=== PATIENT | male | born 1940 | race Caucasian/White ===

== ENCOUNTER 2017-10-30 15:35 | Inpatient (IN) ==
[2017-10-29] MEDS: Acetaminophen 325 MG TABLET PO PRN (22:23)
[2017-10-30] MEDS: Acetaminophen 325 MG TABLET PO PRN ×3 (04:58→18:31)
[2017-10-30 05:15] LABS: Basophils % 0.3 %; Eosinophils # 0.2 K/mcL (0.0-0.6); Eosinophils % 2.3 %; Hematocrit 31.7 % (37.5-50.1); Hemoglobin 9.4 g/dL (12.9-16.9); Immature Granulocytes % 0.5 % (0-4); Lymphocytes # 0.5 K/mcL (0.6-4.6); Lymphocytes % 6.1 %; Mean Corpuscular HGB Conc 29.7 g/dL (31.6-35.5); Mean Corpuscular Hemoglobin 25.5 pg (28.0-33.3); Mean Corpuscular Volume 86.1 fL (83.0-100.0); Mean Platelet Volume 9.7 fL (9.4-12.4); Monocytes # 0.9 K/mcL (0.0-1.3); Neutrophils # 6.2 K/mcL (1.6-8.9); Platelet Count 144 K/mcL (140-400); Red Blood Count 3.68 M/mcL (4.19-5.50); Red Cell Distribution Width 18.7 % (11.5-14.5); Segmented Neutrophils % 79.8 %
[2017-10-30 05:20] LABS: INR 1.4; Prothrombin Time 15.5 Seconds (9.4-12.1)
[2017-10-30 05:23] LABS: Activated Partial Thrombo Time 32.9 Seconds (26.0-36.0)
[2017-10-30 05:28] LABS: BUN/Creatinine Ratio 19 (6-26); Blood Urea Nitrogen 20 mg/dL (8-23); Calcium 7.5 mg/dL (8.6-10.3); Carbon Dioxide 24 mEq/L (23-29); Chloride 111 mEq/L (98-107); Glucose 171 mg/dL (70-105); Osmolality,Calculated 301 (280-300); Potassium 4.7 mEq/L (3.5-5.1); Sodium 142 mEq/L (136-145); eGFR For Non-African Americans > 60 (> 60)
[2017-10-30] MEDS: Insulin LISPRO 300 UNITS/3 ML VIAL SQ SCH ×4 (08:09→20:18)
[2017-10-30 09:37] LABS: Estimated Average Glucose 146 mg/dl; Hemoglobin A1C 6.7 %
--- NOTE | 2017-10-30 12:46 | Internal Med History&Physical ---
Date of Encounter: 10/30/17 Time of Encounter: 12:42 Assessment and Plan (1) Hypomagnesemia Current visit: Yes Status: Acute Magnesium supplement ordered for today. Will repeat labs tomorrow. (2) DVT (deep venous thrombosis) Current visit: Yes Status: Acute DVT left upper extremity and right lower extremity. Patient not a candidate for anticoagulation due to history of G.I. bleed and GAVE. Does have IVC filter. Qualifiers: DVT location: lower extremity Affected thrombotic vein of extremity: unspecified lower extremity distal vein Chronicity: acute Laterality: right Qualified Code(s): I82.4Z1 - Acute embolism and thrombosis of unspecified deep veins of right distal lower extremity (3) GAVE (gastric antral vascular ectasia) Current visit: Yes Status: Acute Continue to monitor hemoglobin. Follow up with G.I. as scheduled. (4) Anemia Current visit: Yes Status: Chronic Current hemoglobin 9.4. Stable. Will monitor closely. Qualifiers: Anemia type: iron deficiency Iron deficiency anemia type: chronic blood loss Qualified Code(s): D50.0 - Iron deficiency anemia secondary to blood loss (chronic) (5) CAD (coronary artery disease) Current visit: Yes Status: Chronic Denies chest pain. Continue current medications. Qualifiers: Coronary Disease-Associated Artery/Lesion type: unspecified vessel or lesion type [place] vs. transplanted heart: unspecified whether [place] or transplanted heart Associated angina: without angina Qualified Code(s): I25.10 - Atherosclerotic heart disease of [place] coronary artery without angina pectoris (6) Diabetes Current visit: Yes Status: Chronic Hemoglobin A-1 C6 .7. Continue insulin. Monitor fingerstick blood sugars. Qualifiers: Diabetes mellitus type: type 2 Diabetes mellitus buttermaker continuous churn insulin use: with chcf use Diabetes mellitus complication status: without complication Qualified Code(s): E11.9 - Type 2 diabetes mellitus without complications; Z79.4 - termite control service representative (current) use of insulin (7) GI bleed Current visit: Yes Status: Chronic Follow up with G.I. as scheduled. PEARL noted will repeat endoscopy in 6 weeks. Follow up appointment is in 2 weeks. Continue supplements and monitor hemoglobin. Qualifiers: GI bleed type/associated pathology: angiodysplasia of stomach and duodenum Qualified Code(s): K31.811 - Angiodysplasia of stomach and duodenum with bleeding Internal Medicine - H&P: HPI Admitted From: Hospital to Hospital Transfer Plans for Post Hospital Care: Home History of present illness: Mr. Jennings is a 77 year old male admitted to rehab unit from [facility]. Past medical history includes aortic aneurysm with dissection status post repair and 2014, DVT not on anticoagulation. Diabetes, Hypertension, coronary artery disease, gave lesion, chronic anemia. History of prostate cancer and coronary artery bypass graft. Has had multiple blood transfusions in the past 6 months reporting at least one per month. Hemoglobin stable at 9.4 today. Does have current DVT in right lower extremity and left upper extremity. He does have an IVC filter in place due to previous clots with pulmonary embolism' s. Denies shortness of breath, chest pain, fever, chills, nausea vomiting or diarrhea. Does have very little appetite. Left lower extremity cool to touch with slight discoloration of toes. Discussed ordering venous and arterial Doppler. Will discuss code status with patient. Past Med Surg Social Fam HX - Past Medical History Medical history: aortic aneurysm, DVT, diabetes, hypertension, kidney stones, pulmonary embolus, other Additional medical history: Prostate cancer. Anemia. Psychiatric history: no psych history - Past Surgical History Surgical History: coronary bypass (CABG), other Additional surgical history: AAA repair - Social History Smoking Status: Never smoker Smokeless Tobacco Status: No Alcohol use: none Drug use: none - Family History Mother Living Status: Hx Family Cardiac Disorders: Yes Hx Family Endocrine Disorder: Yes (DM) Internal Medicine - H&P: Meds Carvedilol [Coreg] 25 mg PO BID 04/15/17 [History] Cyanocobalamin (Vitamin B-12) [Vitamin B12] 1,000 mcg PO DAILY 04/15/17 [History ] Folic Acid 1 mg PO DAILY 04/15/17 [History] Multivit-Min/FA/Lycopen/Lutein [Centrum Silver Men Tablet] 1 each PO DAILY 04/15 [History] Pantoprazole Sodium [Protonix] 40 mg PO BID 04/15/17 [History] Potassium Chloride [Klor-Con 10] 10 meq PO TID 04/15/17 [History] Venlafaxine [Effexor] 37.5 tab PO DAILY 04/15/17 [History] Vitamin E Acetate [Vitamin E] 400 unit PO DAILY 04/15/17 [History] Albuterol Sulfate [Albuterol Inhaler] 2 puff IH BID PRN 06/27/17 [History] Torsemide [Demadex] 10 mg PO DAILY 07/18/17 [History] Ondansetron HCl [Zofran] 4 mg PO Q6H PRN #30 tab 08/15/17 [Rx] Atorvastatin [Lipitor] 40 mg PO HS 09/02/17 [History] Cholecalciferol (Vitamin D3) [Vitamin D3] 2,000 unit PO DAILY 09/27/17 [History] Prochlorperazine Maleate [Compazine] 5 mg PO Q6HR PRN 09/27/17 [History] Acetaminophen [Non-Aspirin] 650 mg PO Q4HR 10/29/17 [History] Insulin DETEMIR [Levemir] 40 unit SQ BID 10/29/17 [History] 3 Allergy/AdvReac Type Severity Reaction Status Date / Time Sulfa (Sulfonamide Allergy Rash Verified 10/23/17 22:50 Antibiotics) aspartame AdvReac Migraine Verified 10/26/17 12:34 hydrocodone [From Vicodin] AdvReac Confusion Verified 10/23/17 22:50 tramadol AdvReac Confusion Verified 10/23/17 22:50 All Systems PM: A 10-system review of systems was performed and is negative for pertinent findings except as documented above in the HPI. - Constitutional Constitutional: fatigue, no chills, no fever(s), no night sweats - EENT Eyes: no change in vision, no discharge, no pain, no photophobia Ears: no ear discharge, no ear pain, no tinnitus Nose, mouth and throat: no dysphagia, no nasal discharge, no neck pain, no sore throat - Cardiovascular Cardiovascular ROS IM: no chest pain, no diaphoresis, no dyspnea, no lightheadedness, no palpitations, no syncope - Respiratory Respiratory: no cough, no dyspnea, no wheezing, no excessive phlegm production - Gastrointestinal Gastrointestinal: no abdominal pain, no diarrhea, no hematemesis, no hematochezia, no melena, no nausea, no vomiting - Musculoskeletal Musculoskeletal ROS IM: no numbness, no tingling - Integumentary Integumentary IM: no rash, no unusual bruising - Neurological Neurological ROS: no confusion, no convulsions, no focal weakness, no numbness, no tingling, no tremor(s) - Hematologic/Lymphatic Hematologic/Lymphatic: no easy bruising - Constitutional Vitals: Temp Pulse Resp BP Pulse Ox 97.6 F 96 16 146/70 96 10/30/17 07:35 10/30/17 07:35 10/30/17 07:35 10/30/17 07:35 10/30/17 07:35 General appearance: Present: cooperative, A&O X 3, pleasant, no acute distress, answers questions appropriately - Head Head exam: Present: atraumatic, normocephalic - Eye Eye exam: Present: PERRL, conjuntiva pink, sclera anicteric Pupils: Present: PERRL - Neck Neck exam general surgery: Present: supple, trachea midline. Absent: lymphadenopathy - Respiratory Respiratory exam: Present: CTAB. Absent: accessory muscle use, rales, rhonchi, wheezes - Cardiovascular Cardiovascular exam: Present: RRR, +S1, +S2. Absent: diastolic murmur, gallop, rubs, systolic murmur - GI/Abdominal GI/Abdominal exam: Present: normal bowel sounds, soft, no peritoneal signs. Absent: distended, tenderness - Extremities Exam Extremities exam: Present: warm, radial pulses palpable and symmetrical. Absent : calf tenderness, cyanotic, pedal edema Additional comments: RLE 2+ pitting edema. LLE cool to touch with slight cyanosis and edema. - Neurological Exam Neurological exam: Present: CN II-XII intact, oriented X3, no focal deficits. Absent: pronater drift, facial droop, speech deficit - Skin Skin exam: Present: dry, intact Internal Med - H&P Results - Labs CBC & Chem 7: 10/30/17 05:05 10/30/17 05:05 Labs: Short CBC 10/30/17 Range/Units 05:05 WBC 7.8 D (4.3-11.1) K/mcL Hgb 9.4 L (12.9-16.9) g/dL Hct 31.7 L (37.5-50.1) % Plt Count 144 (140-400) K/mcL Neutrophils # 6.2 (1.6-8.9) K/mcL BMP 10/30/17 05:05 Sodium 142 Potassium 4.7 Chloride 111 H Carbon Dioxide 24 BUN 20 Creatinine 1.06 Glucose 171 H Calcium 7.5 L
[~2017-10-30 15:35] MED LIST: *HR* Dextrose 50 % in Water (Syg) 50 ML SYRINGE IVP PRN; 0.9 % Sodium Chloride 1,000 ML IVC SCH; Cholecalciferol (D-3) 1,000 UNIT TABLET PO SCH; Cyanocobalamin (B-12) 1,000 MCG TABLET PO SCH; D5% in Water 1,000 ML IVC PRN; Dextrose Gel 15 GM/37.5 ML TUBE PO PRN; Folic Acid 1 MG TABLET PO SCH; Insulin DETEMIR 100 UNIT/ML X5UNITS SQ SCH; Insulin DETEMIR 100 UNIT/ML per UNIT SQ ONE; Multivit/Ca/Min/Fe/FA 1 TAB TABLET PO SCH; Ondansetron ODT 4 MG TAB.RAPDIS PO PRN; Ondansetron ODT 4 MG TAB.RAPDIS SL PRN; Torsemide 20 MG TABLET PO SCH
[2017-10-30] MEDS ORDERED: D5% in Water 1,000 ML IVC PRN (16:36)
[2017-10-30] MEDS ORDERED: Dextrose Gel 15 GM/37.5 ML TUBE PO PRN ×2 (16:36)
[2017-10-30] MEDS ORDERED: Insulin DETEMIR 100 UNIT/ML per UNIT SQ ONE (21:00)
[2017-10-30] MEDS ORDERED: Insulin LISPRO 300 UNITS/3 ML VIAL SQ SCH (21:00)
[2017-10-30] MEDS: 0.9 % Sodium Chloride 1,000 ML IVC SCH (22:22)
[2017-10-31 05:43] LABS: Basophils % 0.1 %; Eosinophils # 0.2 K/mcL (0.0-0.6); Eosinophils % 2.4 %; Hematocrit 31.3 % (37.5-50.1); Hemoglobin 9.5 g/dL (12.9-16.9); Immature Granulocytes % 0.6 % (0-4); Lymphocytes # 0.5 K/mcL (0.6-4.6); Lymphocytes % 5.8 %; Mean Corpuscular HGB Conc 30.4 g/dL (31.6-35.5); Mean Corpuscular Hemoglobin 25.9 pg (28.0-33.3); Mean Corpuscular Volume 85.3 fL (83.0-100.0); Mean Platelet Volume 10.3 fL (9.4-12.4); Monocytes # 0.9 K/mcL (0.0-1.3); Monocytes % 10.6 %; Platelet Count 144 K/mcL (140-400); Red Blood Count 3.67 M/mcL (4.19-5.50); Red Cell Distribution Width 18.8 % (11.5-14.5); Segmented Neutrophils % 80.5 %
[2017-10-31 06:00] LABS: Alanine Aminotransferase 24 Units/L (7-52); Albumin 2.2 g/dL (3.5-5.7); Albumin/Globulin Ratio 0.7 (1.1-2.2); Alkaline Phosphatase 223 Units/L (34-104); Aspartate Amino Transferase 48 Units/L (13-39); BUN/Creatinine Ratio 20 (6-26); Bilirubin,Total 0.4 mg/dL (0.3-1.0); Blood Urea Nitrogen 20 mg/dL (8-23); Calcium 7.5 mg/dL (8.6-10.3); Carbon Dioxide 22 mEq/L (23-29); Chloride 112 mEq/L (98-107); Globulin 3.2 g/dL (2.4-3.5); Glucose 74 mg/dL (70-105); Magnesium 0.7 mg/dL (1.6-2.6); Osmolality,Calculated 291 (280-300); Potassium 4.2 mEq/L (3.5-5.1); Sodium 140 mEq/L (136-145); Total Protein 5.4 g/dL (6.4-8.9); eGFR For Non-African Americans > 60 (> 60)
[2017-10-31] MEDS: Insulin LISPRO 300 UNITS/3 ML VIAL SQ SCH ×4 (07:50→20:01)
[2017-10-31] MEDS: Torsemide 20 MG TABLET PO SCH (08:38)
[2017-10-31] MEDS: Cyanocobalamin (B-12) 1,000 MCG TABLET PO SCH (08:38)
[2017-10-31] MEDS: Multivit/Ca/Min/Fe/FA 1 TAB TABLET PO SCH (08:38)
[2017-10-31] MEDS: Acetaminophen 325 MG TABLET PO PRN ×3 (08:38→19:57)
[2017-10-31] MEDS: Folic Acid 1 MG TABLET PO SCH (08:38)
[2017-10-31] MEDS: Cholecalciferol (D-3) 1,000 UNIT TABLET PO SCH (08:38)
[2017-10-31] MEDS: Insulin DETEMIR 100 UNIT/ML X5UNITS SQ SCH ×2 (08:39→20:01)
[2017-10-31] MEDS: aMILoride 5 MG TABLET PO SCH (08:43)
[2017-10-31] MEDS ORDERED: aMILoride 5 MG TABLET PO SCH (09:00)
[2017-10-31] MEDS ORDERED: Torsemide 20 MG TABLET PO SCH (09:00)
--- NOTE | 2017-10-31 10:34 | Discharge Summary ---
Orders not resulted at time of discharge: Pending orders 10/30/17 05:05 Vitamin D 1,25 Dihydroxy AM 0400 10/30/17 14:06 abdominal ultrasound - limited [US abdomen limited] [US] Routine Date of Encounter: 10/30/17 Time of Encounter: 15:00 Hospital course: Please see H&P this date. Patient transferred from rehabilitation to swing status. No issues besides what is in H&P. - Time Spent with Patient Total time spent providing and/or coordinating discharge services: - Discharge Medications Home Medications: Carvedilol [Coreg] 25 mg PO BID 04/15/17 [History] Cyanocobalamin (Vitamin B-12) [Vitamin B12] 1,000 mcg PO DAILY 04/15/17 [History ] Folic Acid 1 mg PO DAILY 04/15/17 [History] Multivit-Min/FA/Lycopen/Lutein [Centrum Silver Men Tablet] 1 each PO DAILY 04/15 [History] Pantoprazole Sodium [Protonix] 40 mg PO BID 04/15/17 [History] Potassium Chloride [Klor-Con 10] 10 meq PO TID 04/15/17 [History] Venlafaxine [Effexor] 37.5 tab PO DAILY 04/15/17 [History] Vitamin E Acetate [Vitamin E] 400 unit PO DAILY 04/15/17 [History] Albuterol Sulfate [Albuterol Inhaler] 2 puff IH BID PRN 06/27/17 [History] Torsemide [Demadex] 10 mg PO DAILY 07/18/17 [History] Ondansetron HCl [Zofran] 4 mg PO Q6H PRN #30 tab 08/15/17 [Rx] Atorvastatin [Lipitor] 40 mg PO HS 09/02/17 [History] Cholecalciferol (Vitamin D3) [Vitamin D3] 2,000 unit PO DAILY 09/27/17 [History] Prochlorperazine Maleate [Compazine] 5 mg PO Q6HR PRN 09/27/17 [History] Acetaminophen [Non-Aspirin] 650 mg PO Q4HR 10/29/17 [History] Insulin DETEMIR [Levemir] 40 unit SQ BID 10/29/17 [History] Allergies/Adverse Reactions: 3 Allergy/AdvReac Type Severity Reaction Status Date / Time Sulfa (Sulfonamide Allergy Rash Verified 10/23/17 22:50 Antibiotics) aspartame AdvReac Migraine Verified 10/26/17 12:34 hydrocodone [From Vicodin] AdvReac Confusion Verified 10/23/17 22:50 tramadol AdvReac Confusion Verified 10/23/17 22:50 Date of admission: 10/29/17 18:41 Primary care physician: PCP ANDRIY Consults: 10/29/17 21:52 Consult to Occupational Therapy [CONS] Routine Comment: Evaluate, develop and implement POC Reason for Consult: Evaluate and treat Does patient have active BEDREST order?: No Is patient medically & hemodynamically stable?: Yes Patient assessed for mobility or mobilized this visit?: Yes Consult to Physical Medicine/Rehab [CONS] Routine Reason for Consult: Evaluate and treat Call Completed: No Consult to Physical Therapy [CONS] Routine Comment: Evaluate, develop and implement POC Reason for Consult: Evaluate and treat Does patient have active BEDREST order?: No Is patient medically & hemodynamically stable?: Yes Patient assessed for mobility or mobilized this visit?: Yes Consult to Recreational Therapy [CONS] Routine Comment: Evaluate, develop and implement POC Consult to Python Architect [CONS] Routine Reason for SW Consult: Pt and will need assistance in determining code status. - Constitutional Vitals: Temp Pulse Resp BP Pulse Ox 97.4 F L 83 16 90/64 95 10/30/17 13:01 10/30/17 13:01 10/30/17 13:01 10/30/17 13:01 10/30/17 13:01 General appearance: Present: cooperative, A&O X 3, pleasant, no acute distress, answers questions appropriately - Patient Status Disposition: Still a Patient - Discharge Instructions [facility] [Primary Care Provider[facility] -
--- NOTE | 2017-10-31 10:37 | Internal Med History&Physical ---
Date of Encounter: 10/31/17 Time of Encounter: 10:34 Assessment and Plan (1) Physical deconditioning Current visit: Yes Status: Acute Patient is a transfer from [facility] where he was evaluated for multiple issues that would include hypotension, poor nutritional intake, nausea, GAVE syndrome and prostate CA. patient appears relaxed and currently denies any discomforts. Patient states she continues to be fairly weak which he believes is secondary to his fluid retention in his legs. Patient is currently being evaluated by PT/OT and is to continue with therapy. No acute issues at this time and will continue with supportive care. Patient is scheduled for a gallbladder ultrasound tomorrow. (2) Prostate cancer Current visit: Yes Status: Acute Patient continues with supportive care. We will continue with follow-up with oncology/urology. Patient was treated for his prostate CA earlier this year, during which time he received radiation. 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 (3) Ascites Current visit: Yes Status: Acute Patient's abdomen continues to be somewhat distended and firm. Patient has had a recent paracentesis during which greater than 5 L of fluid was removed per medical records. Patient states that his abdomen is much smaller than it was in the recent past. Patient continues to have moderate edema to bilateral legs. We will continue to monitor. Patient remains asymptomatic and denies any shortness of breath. Qualifiers: Ascites type: other type Qualified Code(s): R18.8 - Other ascites (4) DVT (deep venous thrombosis) Current visit: Yes Status: Acute No acute issues. Patient currently has DVT is located to his left upper arm and right lower leg. Patient with history of DVTs in the past and currently has IVC filter in place. Patient currently not on any anticoagulation due to his current issues with GAVE and related potential for GI bld. Will continue to monitor his status on this. Hx of PE. No acute pulmonary issues. Qualifiers: DVT location: upper extremity Affected thrombotic vein of extremity: unspecified vein of extremity Chronicity: acute Laterality: unspecified laterality Qualified Code(s): I82.629 - Acute embolism and thrombosis of deep veins of unspecified upper extremity (5) GAVE (gastric antral vascular ectasia) Current visit: No Status: Acute No acute issues at this time. Has had a BM today with no reported signs of bleeding. Most recent hemoglobin was 9.5. We will continue to monitor with serial labs and exam. (6) Hypomagnesemia Current visit: Yes Status: Acute Patient's labs were reviewed with today's magnesium level 0.7. We will repeat IV magnesium replacement and recheck labs in the morning. Patient currently with complaints of generalized weakness, but otherwise asymptomatic. (7) CAD (coronary artery disease) Current visit: Yes Status: Chronic No acute issues. Patient denies any discomforts or palpitations. We will continue with current home medications. Patient has had a lower blood pressure than his normal. Today systolic blood pressure is greater than 100. Qualifiers: Coronary Disease-Associated Artery/Lesion type: unspecified vessel or lesion type [place] vs. transplanted heart: [place] heart Associated angina: without angina Qualified Code(s): I25.10 - Atherosclerotic heart disease of [place] coronary artery without angina pectoris (8) Diabetes Current visit: No Status: Chronic No acute issues. Patient's glucose of 1 well-controlled with current fingerstick showing glucose less than 140. We will continue with current medication Qualifiers: Diabetes mellitus type: type 2 Diabetes mellitus penitentiary insulin use: unspecified penitentiary insulin use status Diabetes mellitus complication status : with unspecified complications Qualified Code(s): E11.8 - Type 2 diabetes mellitus with unspecified complications Internal Medicine - H&P: HPI Chief complaint: deconditioning Admitted From: Intrahospital Transfer Plans for Post Hospital Care: Home History of present illness: Mr. Jennings is a 77 year old male, admitted to rehab unit from [facility]. Past medical history includes aortic aneurysm with dissection status post repair and 2014, DVT not on anticoagulation. Diabetes, Hypertension, coronary artery disease, gave lesion, chronic anemia. History of prostate cancer and coronary artery bypass graft. Has had multiple blood transfusions in the past 6 months reporting at least one per month. Does have current DVT in right lower extremity and left upper extremity. He does have an IVC filter in place due to previous clots with pulmonary embolism's. Patient has had unspecified ascites recently which required paracentesis. Patient states that his abdomen appears much smaller than it did prior to his paracentesis. Denies shortness of breath, chest pain, fever, chills, nausea vomiting or diarrhea. Left lower extremity cool to touch with slight discoloration of toes. Past Med Surg Social Fam HX - Past Medical History Medical history: aortic aneurysm, DVT, diabetes, hypertension, kidney stones, pulmonary embolus, other Additional medical history: Prostate cancer. Anemia. Psychiatric history: no psych history - Past Surgical History Surgical History: coronary bypass (CABG), other Additional surgical history: AAA repair - Social History Smoking Status: Never smoker Smokeless Tobacco Status: No Alcohol use: none Drug use: none - Family History Mother Living Status: Hx Family Cardiac Disorders: Yes Hx Family Endocrine Disorder: Yes (DM) Internal Medicine - H&P: Meds Carvedilol [Coreg] 25 mg PO BID 04/15/17 [History] Cyanocobalamin (Vitamin B-12) [Vitamin B12] 1,000 mcg PO DAILY 04/15/17 [History ] Folic Acid 1 mg PO DAILY 04/15/17 [History] Multivit-Min/FA/Lycopen/Lutein [Centrum Silver Men Tablet] 1 each PO DAILY 04/15 [History] Pantoprazole Sodium [Protonix] 40 mg PO BID 04/15/17 [History] Potassium Chloride [Klor-Con 10] 10 meq PO TID 04/15/17 [History] Venlafaxine [Effexor] 37.5 tab PO DAILY 04/15/17 [History] Vitamin E Acetate [Vitamin E] 400 unit PO DAILY 04/15/17 [History] Albuterol Sulfate [Albuterol Inhaler] 2 puff IH BID PRN 06/27/17 [History] Torsemide [Demadex] 10 mg PO DAILY 07/18/17 [History] Ondansetron HCl [Zofran] 4 mg PO Q6H PRN #30 tab 08/15/17 [Rx] Atorvastatin [Lipitor] 40 mg PO HS 09/02/17 [History] Cholecalciferol (Vitamin D3) [Vitamin D3] 2,000 unit PO DAILY 09/27/17 [History] Prochlorperazine Maleate [Compazine] 5 mg PO Q6HR PRN 09/27/17 [History] Acetaminophen [Non-Aspirin] 650 mg PO Q4HR 10/29/17 [History] Insulin DETEMIR [Levemir] 40 unit SQ BID 10/29/17 [History] 3 Allergy/AdvReac Type Severity Reaction Status Date / Time Sulfa (Sulfonamide Allergy Rash Verified 10/23/17 22:50 Antibiotics) aspartame AdvReac Migraine Verified 10/26/17 12:34 hydrocodone [From Vicodin] AdvReac Confusion Verified 10/23/17 22:50 tramadol AdvReac Confusion Verified 10/23/17 22:50 All Systems PM: A 10-system review of systems was performed and is negative for pertinent findings except as documented above in the HPI. - Constitutional Constitutional: as per HPI, no chills, no fever(s), no night sweats - EENT Eyes: as per HPI, no change in vision, no discharge, no pain, no photophobia Ears: no ear discharge, no ear pain, no tinnitus Nose, mouth and throat: no dysphagia, no nasal discharge, no neck pain, no sore throat - Cardiovascular Cardiovascular ROS IM: no chest pain, no diaphoresis, no dyspnea, no lightheadedness, no palpitations, no syncope - Respiratory Respiratory: as per HPI, no cough, no dyspnea, no wheezing, no excessive phlegm production - Gastrointestinal Gastrointestinal: as per HPI, no abdominal pain, no diarrhea, no hematemesis, no hematochezia, no melena, no nausea, no vomiting - Musculoskeletal Musculoskeletal ROS IM: no numbness, no tingling - Integumentary Integumentary IM: no rash, no unusual bruising - Neurological Neurological ROS: as per HPI, no confusion, no convulsions, no focal weakness, no numbness, no tingling, no tremor(s) - Hematologic/Lymphatic Hematologic/Lymphatic: no easy bruising - Constitutional Vitals: Temp Pulse Resp BP Pulse Ox 98.6 F 92 14 126/64 95 10/31/17 07:13 10/31/17 07:13 10/31/17 07:13 10/31/17 07:13 10/31/17 07:13 General appearance: Present: A&O X 3, pleasant, no acute distress Exam: answers questions appropriately - Head Head exam: Present: atraumatic, normocephalic - Eye Eye exam: Present: PERRL, conjuntiva pink, sclera anicteric Pupils: Present: PERRL - Neck Neck exam general surgery: Present: supple, trachea midline. Absent: lymphadenopathy - Respiratory Respiratory exam: Present: CTAB. Absent: accessory muscle use, rales, rhonchi, wheezes - Cardiovascular Cardiovascular exam: Present: RRR, +S1, +S2. Absent: diastolic murmur, gallop, rubs, systolic murmur - GI/Abdominal GI/Abdominal exam: Present: normal bowel sounds, no peritoneal signs. Absent: distended, tenderness Additional comments: Abdomen appears slightly distended and firm. Patient denies any tenderness during palpation. Patient with a history of unspecified ascites. Bowel sounds all quadrants. - Extremities Exam Extremities exam: Present: pedal edema, warm, radial pulses palpable and symmetrical. Absent: calf tenderness, cyanotic Additional comments: Patient with 3+ pitting edema to bilateral legs and feet. No open wounds - Neurological Exam Neurological exam: Present: CN II-XII intact, oriented X3, no focal deficits. Absent: pronater drift, facial droop, speech deficit - Skin Skin exam: Present: dry, intact Internal Med - H&P Results - Labs CBC & Chem 7: 10/31/17 05:35 10/31/17 05:35 Labs: Short CBC 10/31/17 Range/Units 05:35 WBC 8.8 (4.3-11.1) K/mcL Hgb 9.5 L (12.9-16.9) g/dL Hct 31.3 L (37.5-50.1) % Plt Count 144 (140-400) K/mcL Neutrophils # 7.0 (1.6-8.9) K/mcL BMP 10/31/17 05:35 Sodium 140 Potassium 4.2 Chloride 112 H Carbon Dioxide 22 L BUN 20 Creatinine 0.99 Glucose 74 Calcium 7.5 L Liver Function 10/31/17 Range/Units 05:35 Total Bilirubin 0.4 (0.3-1.0) mg/dL AST 48 H (13-39) Units/L ALT 24 (7-52) Units/L Alkaline Phosphatase 223 H (34-104) Units/L Albumin 2.2 L (3.5-5.7) g/dL
[2017-10-31] MEDS: 0.9 % Sodium Chloride 1,000 ML IVC SCH (15:49)
[2017-10-31 22:07] LABS: Bilirubin,Urine Negative (Negative); Blood,Urine Negative (Negative); Clarity,Urine Clear (Clear); Color,Urine Yellow (Yellow); Glucose,Urine (UA) Normal (Normal); Ketones,Urine Trace mg/dL (Negative); Leukocyte Esterase,Urine Negative (Negative); Nitrite,Urine Negative (Negative); Protein,Urine 100 mg/dL (Neg-Trace); Specific Gravity,Urine 1.025 (1.010-1.025); Urobilinogen,Urine Normal (Normal)
[2017-10-31 22:18] LABS: Bacteria,Urine None Seen per hpf (None-Few); RBC,Urine 0-3 per hpf (0-3); Squamous Epithelial Cell,Urine Few per lpf (None-Few); WBC,Urine 0-3 per hpf (0-3)
[2017-11-01] MEDS: Ondansetron ODT 4 MG TAB.RAPDIS SL PRN (04:48)
[2017-11-01] MEDS: *HR* Dextrose 50 % in Water (Syg) 50 ML SYRINGE IVP PRN ×2 (05:46→07:06)
[2017-11-01 05:53] LABS: Hematocrit 32.6 % (37.5-50.1); Hemoglobin 9.8 g/dL (12.9-16.9); Mean Corpuscular HGB Conc 30.1 g/dL (31.6-35.5); Mean Corpuscular Hemoglobin 25.3 pg (28.0-33.3); Mean Platelet Volume 9.5 fL (9.4-12.4); Platelet Count 214 K/mcL (140-400); Red Blood Count 3.88 M/mcL (4.19-5.50)
[2017-11-01 06:15] LABS: Alanine Aminotransferase 27 Units/L (7-52); Albumin 2.5 g/dL (3.5-5.7); Albumin/Globulin Ratio 0.7 (1.1-2.2); Alkaline Phosphatase 236 Units/L (34-104); Aspartate Amino Transferase 52 Units/L (13-39); BUN/Creatinine Ratio 22 (6-26); Bilirubin,Total 0.4 mg/dL (0.3-1.0); Blood Urea Nitrogen 22 mg/dL (8-23); Calcium 7.8 mg/dL (8.6-10.3); Carbon Dioxide 20 mEq/L (23-29); Chloride 113 mEq/L (98-107); Globulin 3.4 g/dL (2.4-3.5); Glucose 53 mg/dL (70-105); Osmolality,Calculated 291 (280-300); Potassium 3.9 mEq/L (3.5-5.1); Sodium 140 mEq/L (136-145); Total Protein 5.9 g/dL (6.4-8.9); eGFR For Non-African Americans > 60 (> 60)
[2017-11-01] MEDS: Insulin LISPRO 300 UNITS/3 ML VIAL SQ SCH ×4 (11:35→21:27)
[2017-11-01] MEDS: Folic Acid 1 MG TABLET PO SCH (11:40)
[2017-11-01] MEDS: Multivit/Ca/Min/Fe/FA 1 TAB TABLET PO SCH (11:40)
[2017-11-01] MEDS: aMILoride 5 MG TABLET PO SCH (11:40)
[2017-11-01] MEDS: Acetaminophen 325 MG TABLET PO PRN ×2 (11:41→17:45)
[2017-11-01] MEDS: Cholecalciferol (D-3) 1,000 UNIT TABLET PO SCH (11:41)
[2017-11-01] MEDS: Cyanocobalamin (B-12) 1,000 MCG TABLET PO SCH (11:41)
[2017-11-01] MEDS: Torsemide 20 MG TABLET PO SCH (11:41)
[2017-11-01] MEDS: Insulin DETEMIR 100 UNIT/ML X5UNITS SQ SCH ×2 (11:42→21:27)
--- NOTE | 2017-11-01 14:46 | Internal Med Progress Note ---
Date of Encounter: 11/01/17 Time of Encounter: 14:43 - Assessment and plan (1) DVT (deep venous thrombosis) Current Visit: Yes Status: Acute Assessment and plan: DVT to RLE and LUE. no anticoagulation therapy due to GI bleed. has IVC filter Qualifiers: DVT location: upper extremity Affected thrombotic vein of extremity: unspecified vein of extremity Chronicity: acute Laterality: unspecified laterality Qualified Code(s): I82.629 - Acute embolism and thrombosis of deep veins of unspecified upper extremity (2) GAVE (gastric antral vascular ectasia) Current Visit: Yes Status: Acute Assessment and plan: has had multiple blood transfusions in the recent past. monitor hgb. stable at this time. f/u with GI as scheduled. (3) CAD (coronary artery disease) Current Visit: Yes Status: Chronic Assessment and plan: stable. denies chest pain. Qualifiers: Coronary Disease-Associated Artery/Lesion type: unspecified vessel or lesion type [place] vs. transplanted heart: [place] heart Associated angina: without angina Qualified Code(s): I25.10 - Atherosclerotic heart disease of [place] coronary artery without angina pectoris (4) Hypomagnesemia Current Visit: Yes Status: Acute Assessment and plan: recieved supplement. will repeat labs. (5) Physical deconditioning Current Visit: Yes Status: Acute Assessment and plan: PT/OT, continue. will follow progress. (6) Hypertension Current Visit: Yes Status: Chronic Assessment and plan: controlled with current meds. will follow progress. Qualifiers: Hypertension type: unspecified Qualified Code(s): I10 - Essential (primary ) hypertension (7) Diabetes Current Visit: Yes Status: Chronic Assessment and plan: controlled. monitor FSBS closely. had hypogylcemic episode yesterday. Qualifiers: Diabetes mellitus type: type 2 Diabetes mellitus oil heaterman insulin use: unspecified skilled nursing insulin use status Diabetes mellitus complication status : with unspecified complications Qualified Code(s): E11.8 - Type 2 diabetes mellitus with unspecified complications - Time Spent With Patient 25 - 35 minutes - Subjective Interval history: up in [facility] participating with therapy. denies any pain. states glucose dropped in the 60's this am and he was symptomatic with sweating and nausea. discussed liver ultrasound results. appetite slightly improved, nausea with 1 episode of vomitting this am. c/o SOB with bending over with therapy to put on pants. denies chest pain, fever, chills or diarrhea. - Constitutional Vitals: Temp Pulse Resp BP Pulse Ox 97.9 F 87 16 133/72 97 11/01/17 12:22 11/01/17 12:22 11/01/17 12:22 11/01/17 12:22 11/01/17 12:22 General appearance: Present: A&O X 3, pleasant, no acute distress, answers questions appropriately - Head Head exam: Present: atraumatic, normocephalic - Eye Eye exam: Present: PERRL, conjuntiva pink, sclera anicteric Pupils: Present: PERRL - Neck Neck exam general surgery: Present: supple, trachea midline. Absent: lymphadenopathy - Respiratory Respiratory exam: Present: CTAB. Absent: accessory muscle use, rales, rhonchi, wheezes - Cardiovascular Cardiovascular exam: Present: RRR, +S1, +S2. Absent: diastolic murmur, gallop, rubs, systolic murmur - GI/Abdominal GI/Abdominal exam: Present: distended, normal bowel sounds, soft, no peritoneal signs. Absent: tenderness - Extremities Exam Extremities exam: Present: warm, radial pulses palpable and symmetrical. Absent : calf tenderness, cyanotic, pedal edema Additional comments: 1+ pitting edema BLE, L>R. - Neurological Exam Neurological exam: Present: CN II-XII intact, oriented X3, no focal deficits. Absent: pronater drift, facial droop, speech deficit - Skin Skin exam: Present: dry, intact Internal Medicine: Result - Labs CBC & Chem 7: 11/01/17 05:30 11/01/17 05:30 Labs: Short CBC 11/01/17 Range/Units 05:30 WBC 12.0 H (4.3-11.1) K/mcL Hgb 9.8 L (12.9-16.9) g/dL Hct 32.6 L (37.5-50.1) % Plt Count 214 (140-400) K/mcL BMP 11/01/17 05:30 Sodium 140 Potassium 3.9 Chloride 113 H Carbon Dioxide 20 L BUN 22 Creatinine 0.98 Glucose 53 L Calcium 7.8 L Liver Function 11/01/17 Range/Units 05:30 Total Bilirubin 0.4 (0.3-1.0) mg/dL AST 52 H (13-39) Units/L ALT 27 (7-52) Units/L Alkaline Phosphatase 236 H (34-104) Units/L Albumin 2.5 L (3.5-5.7) g/dL Urine 10/31/17 Range/Units 20:00 Urine Color Yellow (Yellow) Urine Clarity Clear (Clear) Urine pH 6.0 (5.0-8.0) pH Units Ur Specific [place] 1.025 (1.010-1.025) Urine Protein 100 H (Neg-Trace) mg/dL Urine Glucose (UA) Normal (Normal) mg/dL - Impressions Impressions Abdomen Ultrasound 11/01/17 06:00 IMPRESSION: Findings of cirrhosis are demonstrated with upper abdominal ascites and right pleural effusion. D/ / Tristin Anderson / Tristin Anderson Interpreting Provider: Tristin Anderson Consult Discharge Plan - Plan [facility]: [facility] [Primary Care Provider] -
[2017-11-01] MEDS: 0.9 % Sodium Chloride 1,000 ML IVC SCH (17:35)
[2017-11-01] MEDS ORDERED: Albuterol 2.5 MG/3 ML NEBULIZER IH PRN (18:08)
[2017-11-02 05:10] LABS: Basophils % 0.1 %; Eosinophils # 0.2 K/mcL (0.0-0.6); Eosinophils % 2.4 %; Hematocrit 28.4 % (37.5-50.1); Hemoglobin 8.6 g/dL (12.9-16.9); Immature Granulocytes % 0.4 % (0-4); Lymphocytes # 0.4 K/mcL (0.6-4.6); Lymphocytes % 6.1 %; Mean Corpuscular HGB Conc 30.3 g/dL (31.6-35.5); Mean Corpuscular Hemoglobin 25.6 pg (28.0-33.3); Mean Corpuscular Volume 84.5 fL (83.0-100.0); Mean Platelet Volume 10.1 fL (9.4-12.4); Monocytes # 0.8 K/mcL (0.0-1.3); Neutrophils # 5.3 K/mcL (1.6-8.9); Platelet Count 128 K/mcL (140-400); Red Blood Count 3.36 M/mcL (4.19-5.50); Red Cell Distribution Width 18.6 % (11.5-14.5)
[2017-11-02 05:27] LABS: Alanine Aminotransferase 20 Units/L (7-52); Albumin 1.8 g/dL (3.5-5.7); Albumin/Globulin Ratio 0.7 (1.1-2.2); Alkaline Phosphatase 184 Units/L (34-104); Aspartate Amino Transferase 37 Units/L (13-39); BUN/Creatinine Ratio 24 (6-26); Bilirubin,Total 0.3 mg/dL (0.3-1.0); Blood Urea Nitrogen 19 mg/dL (8-23); Calcium 6.4 mg/dL (8.6-10.3); Carbon Dioxide 19 mEq/L (23-29); Chloride 116 mEq/L (98-107); Globulin 2.7 g/dL (2.4-3.5); Glucose 66 mg/dL (70-105); Osmolality,Calculated 292 (280-300); Potassium 3.5 mEq/L (3.5-5.1); Sodium 141 mEq/L (136-145); Total Protein 4.5 g/dL (6.4-8.9); eGFR For Non-African Americans > 60 (> 60)
[2017-11-02] MEDS: 0.9 % Sodium Chloride 1,000 ML IVC SCH (08:00)
[2017-11-02] MEDS: Insulin LISPRO 300 UNITS/3 ML VIAL SQ SCH ×4 (08:00→20:59)
[2017-11-02] MEDS: Cyanocobalamin (B-12) 1,000 MCG TABLET PO SCH (08:06)
[2017-11-02] MEDS: aMILoride 5 MG TABLET PO SCH (08:07)
[2017-11-02] MEDS: Multivit/Ca/Min/Fe/FA 1 TAB TABLET PO SCH (08:07)
[2017-11-02] MEDS: Folic Acid 1 MG TABLET PO SCH (08:07)
[2017-11-02] MEDS: Torsemide 20 MG TABLET PO SCH (08:07)
[2017-11-02] MEDS: Cholecalciferol (D-3) 1,000 UNIT TABLET PO SCH (08:07)
[2017-11-02] MEDS: Insulin DETEMIR 100 UNIT/ML X5UNITS SQ SCH ×2 (08:08→21:17)
--- NOTE | 2017-11-02 15:17 | Internal Med Progress Note ---
Date of Encounter: 11/02/17 Time of Encounter: 15:15 - Assessment and plan (1) Physical deconditioning Current Visit: Yes Status: Acute Assessment and plan: Patient continue to have generalized weakness. Therapy has been progressing well. No current issues. Continue with current plan of care. (2) Prostate cancer Current Visit: Yes Status: Acute Assessment and plan: No acute issues. Continue with current plan of care. 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 Continue with supportive care. (3) Ascites Current Visit: Yes Status: Acute Assessment and plan: Noted that abd appears somewhat larger. Will have Nx do abd girth measurements. Abd remains soft and nontender. Will continue to monitor for repeat paracentesis. Qualifiers: Ascites type: other type Qualified Code(s): R18.8 - Other ascites (4) DVT (deep venous thrombosis) Current Visit: Yes Status: Acute Assessment and plan: No acute issues. Patient currently not on anticoagulation due to recent Hx of GAVES syndrome and possible GI bld. Right leg remains R>L. Qualifiers: DVT location: upper extremity Affected thrombotic vein of extremity: unspecified vein of extremity Chronicity: acute Laterality: unspecified laterality Qualified Code(s): I82.629 - Acute embolism and thrombosis of deep veins of unspecified upper extremity (5) GAVE (gastric antral vascular ectasia) Current Visit: Yes Status: Acute Assessment and plan: No acutes issues. No reported blood in stool. Continue to f/u with GI service. Hgb did drop a gm to 8.6. Will repeat labs in AM (6) Hypomagnesemia Current Visit: Yes Status: Acute Assessment and plan: Mg 1.0. Will repeat replacement. (7) CAD (coronary artery disease) Current Visit: Yes Status: Chronic Assessment and plan: No acute issues. Denies any discomforts or palpitations. VSS. Continue on current meds. Qualifiers: Coronary Disease-Associated Artery/Lesion type: unspecified vessel or lesion type [place] vs. transplanted heart: [place] heart Associated angina: without angina Qualified Code(s): I25.10 - Atherosclerotic heart disease of [place] coronary artery without angina pectoris (8) Diabetes Current Visit: Yes Status: Chronic Assessment and plan: No acute issues. Glucose remains well controlled and <140. Continue on current meds. Qualifiers: Diabetes mellitus type: type 2 Diabetes mellitus exterminator termite insulin use: unspecified fpc insulin use status Diabetes mellitus complication status : with unspecified complications Qualified Code(s): E11.8 - Type 2 diabetes mellitus with unspecified complications - Time Spent With Patient less than 15 minutes - Subjective Interval history: Patient currently denies any discomforts or dyespnea. States that he continues to have diarrhea and experienced any accident today. States that he feels that his abdomen has not enlarged, although it does appear larger. Recent Hx of ascitiis.. Denies any other issues and states that therapy has been progressing well. - Constitutional Vitals: Temp Pulse Resp BP Pulse Ox 98.5 F 85 16 142/86 97 11/02/17 07:19 11/02/17 07:19 11/02/17 07:19 11/02/17 07:19 11/02/17 07:19 General appearance: Present: A&O X 3, pleasant, no acute distress, answers questions appropriately - Head Head exam: Present: atraumatic, normocephalic - Eye Eye exam: Present: PERRL, conjuntiva pink, sclera anicteric Pupils: Present: PERRL - Neck Neck exam general surgery: Present: supple, trachea midline. Absent: lymphadenopathy - Respiratory Respiratory exam: Present: CTAB. Absent: accessory muscle use, rales, rhonchi, wheezes - Cardiovascular Cardiovascular exam: Present: RRR, +S1, +S2. Absent: diastolic murmur, gallop, rubs, systolic murmur - GI/Abdominal GI/Abdominal exam: Present: normal bowel sounds, soft, no peritoneal signs. Absent: distended, tenderness Additional comments: appears distended, but remains soft and nontender. BS all quads. - Extremities Exam Extremities exam: Present: pedal edema, warm, radial pulses palpable and symmetrical. Absent: calf tenderness, cyanotic Additional comments: moderate leg/pedal edema - Neurological Exam Neurological exam: Present: CN II-XII intact, oriented X3, no focal deficits. Absent: pronater drift, facial droop, speech deficit - Skin Skin exam: Present: dry, intact Internal Medicine: Result - Labs CBC & Chem 7: 11/02/17 04:50 11/02/17 04:50 Labs: Short CBC 11/02/17 Range/Units 04:50 WBC 6.7 (4.3-11.1) K/mcL Hgb 8.6 L (12.9-16.9) g/dL Hct 28.4 L (37.5-50.1) % Plt Count 128 L (140-400) K/mcL Neutrophils # 5.3 (1.6-8.9) K/mcL BMP 11/02/17 04:50 Sodium 141 Potassium 3.5 Chloride 116 H Carbon Dioxide 19 L BUN 19 Creatinine 0.78 Glucose 66 L Calcium 6.4 L Liver Function 11/02/17 Range/Units 04:50 Total Bilirubin 0.3 (0.3-1.0) mg/dL AST 37 (13-39) Units/L ALT 20 (7-52) Units/L Alkaline Phosphatase 184 H (34-104) Units/L Albumin 1.8 L (3.5-5.7) g/dL Consult Discharge Plan - Plan [facility]: [facility] [Primary Care Provider] -
[2017-11-03] MEDS: Insulin LISPRO 300 UNITS/3 ML VIAL SQ SCH ×4 (08:37→22:14)
[2017-11-03] MEDS: Folic Acid 1 MG TABLET PO SCH (08:52)
[2017-11-03] MEDS: aMILoride 5 MG TABLET PO SCH (08:52)
[2017-11-03] MEDS: Multivit/Ca/Min/Fe/FA 1 TAB TABLET PO SCH (08:53)
[2017-11-03] MEDS: Cyanocobalamin (B-12) 1,000 MCG TABLET PO SCH (08:53)
[2017-11-03] MEDS: Torsemide 20 MG TABLET PO SCH (08:53)
[2017-11-03] MEDS: Cholecalciferol (D-3) 1,000 UNIT TABLET PO SCH (08:53)
[2017-11-03] MEDS: Insulin DETEMIR 100 UNIT/ML X5UNITS SQ SCH ×2 (09:02→22:14)
--- NOTE | 2017-11-03 09:18 | Internal Med Progress Note ---
Date of Encounter: 11/03/17 Time of Encounter: 09:16 - Assessment and plan (1) Ascites Current Visit: Yes Status: Acute Assessment and plan: Abdomen soft , on lasix add Aldactone as well At the present time cause of ascites is not very clear Stable otherwise stable he states that he had his fluid removed Qualifiers: Ascites type: other type Qualified Code(s): R18.8 - Other ascites (2) Prostate cancer Current Visit: Yes Status: Acute Assessment and plan: stable no acute issues passing urine well (3) CAD (coronary artery disease) Current Visit: Yes Status: Chronic Assessment and plan: No chest pain stable Qualifiers: Coronary Disease-Associated Artery/Lesion type: unspecified vessel or lesion type [place] vs. transplanted heart: [place] heart Associated angina: without angina Qualified Code(s): I25.10 - Atherosclerotic heart disease of [place] coronary artery without angina pectoris (4) Diabetes Current Visit: Yes Status: Chronic Assessment and plan: Blood sugars well controlled continue present treatment Qualifiers: Diabetes mellitus type: type 2 Diabetes mellitus jail insulin use: unspecified terminal press operator insulin use status Diabetes mellitus complication status : with unspecified complications Qualified Code(s): E11.8 - Type 2 diabetes mellitus with unspecified complications (5) Anemia Current Visit: No Status: Chronic Assessment and plan: h/h is low will followup iron levels as well ordered Qualifiers: Anemia type: iron deficiency Iron deficiency anemia type: chronic blood loss Qualified Code(s): D50.0 - Iron deficiency anemia secondary to blood loss (chronic) - Subjective Interval history: complains of some diarrhea no abdominal pain no change in his breathing Slept well no fever or chills overall feels well and is getting better getting his rehab and it seems to be helping him - Constitutional Vitals: Temp Pulse Resp BP Pulse Ox 97.7 F 92 18 121/66 92 11/03/17 07:38 11/03/17 07:38 11/03/17 07:38 11/03/17 07:38 11/03/17 07:38 General appearance: Present: A&O X 3, pleasant, no acute distress, answers questions appropriately - Eye Eye exam: Present: EOMI, PERRL. Absent: sclera anicteric Pupils: Present: PERRL - Neck Neck exam general surgery: Absent: tenderness, nuchal rigidity, supple - Respiratory Respiratory exam: Present: CTAB. Absent: chest wall tenderness, decreased breath sounds, respiratory distress, rhonchi, stridor, wheezes, tachypnea - Cardiovascular Cardiovascular exam: Present: RRR, +S1, +S2. Absent: diastolic murmur, gallop, irregular rhythm, JVD - GI/Abdominal GI/Abdominal exam: Present: normal bowel sounds, soft Additional comments: distended Soft non tender Acites Positive , spleen ? - Extremities Exam Extremities exam: Present: pedal edema. Absent: tenderness Additional comments: +++ pitting both sides - Neurological Exam Neurological exam: Present: alert, CN II-XII intact, oriented X3, reflexes normal, strengths equal and symetr throughout. Absent: pronater drift, facial droop, speech deficit Internal Medicine: Result - Labs CBC & Chem 7: 11/02/17 04:50 11/02/17 04:50 Consult Discharge Plan - Plan [facility]: [facility] [Primary Care Provider] -
[2017-11-03] MEDS: Acetaminophen 325 MG TABLET PO PRN (20:06)
[2017-11-04] MEDS: Insulin LISPRO 300 UNITS/3 ML VIAL SQ SCH ×4 (07:58→21:02)
[2017-11-04] MEDS ORDERED: Spironolactone 25 MG TABLET PO SCH (09:00)
--- NOTE | 2017-11-04 09:28 | Internal Med Progress Note ---
Date of Encounter: 11/04/17 Time of Encounter: 09:28 - Assessment and plan (1) Ascites Current Visit: Yes Status: Acute Assessment and plan: Increase Diuretic to 20 mg a day , along with Aldactone . followup labs tomorrow hopeful this will also help his Breathing otherwise he will benefit with paracenthesis . Qualifiers: Ascites type: other type Qualified Code(s): R18.8 - Other ascites (2) Prostate cancer Current Visit: Yes Status: Acute Assessment and plan: stable no new change continue to monitor (3) CAD (coronary artery disease) Current Visit: No Status: Chronic Assessment and plan: Asymptomatic at the present time no new change Qualifiers: Coronary Disease-Associated Artery/Lesion type: unspecified vessel or lesion type [place] vs. transplanted heart: [place] heart Associated angina: without angina Qualified Code(s): I25.10 - Atherosclerotic heart disease of [place] coronary artery without angina pectoris (4) Diabetes Current Visit: Yes Status: Chronic Assessment and plan: blood sugars seems to be lower again , his evening dose was decreased earleir . Will decrease it further . Continue to followup Qualifiers: Diabetes mellitus type: type 2 Diabetes mellitus lobsterman insulin use: unspecified lobsterman insulin use status Diabetes mellitus complication status : with unspecified complications Qualified Code(s): E11.8 - Type 2 diabetes mellitus with unspecified complications (5) Anemia Current Visit: No Status: Chronic Assessment and plan: no new change stable Qualifiers: Anemia type: iron deficiency Iron deficiency anemia type: chronic blood loss Qualified Code(s): D50.0 - Iron deficiency anemia secondary to blood loss (chronic) - Subjective Interval history: Cross coverage , no new issues feels some what tired no complains of SOB , his blood sugars were some what low this morning again . Morning dose insluin on hold now today until he wakes up he did eat his breakfast No fever or chill nausea vomiting or diarrhea - Constitutional Vitals: Temp Pulse Resp BP Pulse Ox 99.9 F H 95 18 145/66 95 11/04/17 07:44 11/04/17 07:44 11/04/17 07:44 11/04/17 07:44 11/04/17 09:24 General appearance: Present: A&O X 3, pleasant, no acute distress, answers questions appropriately - Head Head exam: Present: atraumatic - Eye Eye exam: Present: EOMI, PERRL. Absent: conjuntiva pink, sclera anicteric Pupils: Present: PERRL - Neck Neck exam general surgery: Present: supple. Absent: tenderness, nuchal rigidity - Respiratory Respiratory exam: Present: decreased breath sounds, CTAB. Absent: chest wall tenderness, respiratory distress, rhonchi, stridor, wheezes, tachypnea Additional comments: has ascities somewhat decrease breath on right side - Cardiovascular Cardiovascular exam: Present: RRR, +S1, +S2. Absent: irregular rhythm, JVD - GI/Abdominal GI/Abdominal exam: Present: distended, normal bowel sounds, soft. Absent: diminished bowel sounds, guarding, tenderness Additional comments: ascities , soft non tender - Extremities Exam Extremities exam: Present: pedal edema Additional comments: +++ pitting edema - Neurological Exam Neurological exam: Present: alert, CN II-XII intact, oriented X3, no focal deficits, strengths equal and symetr throughout. Absent: facial droop, speech deficit Internal Medicine: Result - Labs CBC & Chem 7: 11/02/17 04:50 11/02/17 04:50 Consult Discharge Plan - Plan [facility]errals: [facility] [Primary Care Provider] -
[2017-11-04] MEDS ORDERED: Insulin DETEMIR 100 UNIT/ML per UNIT SQ ONE (09:30)
[2017-11-04] MEDS: Cyanocobalamin (B-12) 1,000 MCG TABLET PO SCH (11:11)
[2017-11-04] MEDS: Cholecalciferol (D-3) 1,000 UNIT TABLET PO SCH (11:11)
[2017-11-04] MEDS: aMILoride 5 MG TABLET PO SCH (11:12)
[2017-11-04] MEDS: Folic Acid 1 MG TABLET PO SCH (11:12)
[2017-11-04] MEDS: Multivit/Ca/Min/Fe/FA 1 TAB TABLET PO SCH (11:13)
[2017-11-04] MEDS: Spironolactone 25 MG TABLET PO SCH (11:15)
[2017-11-04] MEDS: Torsemide 20 MG TABLET PO SCH ×2 (11:16→19:46)
[2017-11-04] MEDS: Insulin DETEMIR 100 UNIT/ML X5UNITS SQ SCH ×2 (19:45→21:05)
[2017-11-05 02:01] LABS: Hepatitis A Antibody IgM Nonreactive (Nonreactive); Hepatitis B Core IgM Nonreactive (Nonreactive); Hepatitis B Surface Antigen Nonreactive (Nonreactive); Hepatitis C Virus Antibody Nonreactive (Nonreactive)
[2017-11-05 05:56] LABS: Basophils % 0.2 %; Eosinophils # 0.2 K/mcL (0.0-0.6); Eosinophils % 2.6 %; Hematocrit 29.1 % (37.5-50.1); Hemoglobin 8.8 g/dL (12.9-16.9); Immature Granulocytes % 0.5 % (0-4); Lymphocytes # 0.6 K/mcL (0.6-4.6); Lymphocytes % 9.4 %; Mean Corpuscular HGB Conc 30.2 g/dL (31.6-35.5); Mean Corpuscular Hemoglobin 25.2 pg (28.0-33.3); Mean Corpuscular Volume 83.4 fL (83.0-100.0); Mean Platelet Volume 10.1 fL (9.4-12.4); Monocytes # 0.9 K/mcL (0.0-1.3); Monocytes % 15.3 %; Neutrophils # 4.4 K/mcL (1.6-8.9); Platelet Count 140 K/mcL (140-400); Red Blood Count 3.49 M/mcL (4.19-5.50); Red Cell Distribution Width 18.9 % (11.5-14.5)
[2017-11-05 06:11] LABS: BUN/Creatinine Ratio 23 (6-26); Blood Urea Nitrogen 21 mg/dL (8-23); Calcium 8.5 mg/dL (8.6-10.3); Carbon Dioxide 23 mEq/L (23-29); Chloride 110 mEq/L (98-107); Glucose 132 mg/dL (70-105); Osmolality,Calculated 291 (280-300); Potassium 4.8 mEq/L (3.5-5.1); Sodium 138 mEq/L (136-145); eGFR For Non-African Americans > 60 (> 60)
[2017-11-05] MEDS: Insulin DETEMIR 100 UNIT/ML X5UNITS SQ SCH ×2 (08:50→21:17)
[2017-11-05] MEDS: Ondansetron ODT 4 MG TAB.RAPDIS SL PRN (08:50)
[2017-11-05] MEDS: Insulin LISPRO 300 UNITS/3 ML VIAL SQ SCH ×4 (08:53→21:15)
[2017-11-05] MEDS: Cyanocobalamin (B-12) 1,000 MCG TABLET PO SCH (12:06)
[2017-11-05] MEDS: aMILoride 5 MG TABLET PO SCH (12:06)
[2017-11-05] MEDS: Spironolactone 25 MG TABLET PO SCH (12:07)
[2017-11-05] MEDS: Multivit/Ca/Min/Fe/FA 1 TAB TABLET PO SCH (12:08)
[2017-11-05] MEDS: Torsemide 20 MG TABLET PO SCH (12:08)
[2017-11-05] MEDS: Folic Acid 1 MG TABLET PO SCH (12:08)
[2017-11-05] MEDS: Cholecalciferol (D-3) 1,000 UNIT TABLET PO SCH (12:09)
[2017-11-05 14:34] LABS: % Iron Saturation 9 % (20-55); Iron 20 mcg/dL (65-175); Transferrin 168 mg/dL (203-362)
--- NOTE | 2017-11-05 16:25 | Internal Med Progress Note ---
Date of Encounter: 11/05/17 Time of Encounter: 16:22 - Assessment and plan (1) GAVE (gastric antral vascular ectasia) Current Visit: Yes Status: Acute Assessment and plan: has had multiple blood transfusions in the recent past. monitor hgb. stable at this time. f/u with GI as scheduled. (2) CAD (coronary artery disease) Current Visit: No Status: Chronic Assessment and plan: stable. denies chest pain. Qualifiers: Coronary Disease-Associated Artery/Lesion type: unspecified vessel or lesion type [place] vs. transplanted heart: [place] heart Associated angina: without angina Qualified Code(s): I25.10 - Atherosclerotic heart disease of [place] coronary artery without angina pectoris (3) Physical deconditioning Current Visit: Yes Status: Acute Assessment and plan: PT/OT, continue. will follow progress. (4) Hypertension Current Visit: Yes Status: Chronic Assessment and plan: controlled with current meds. will follow progress. Qualifiers: Hypertension type: unspecified Qualified Code(s): I10 - Essential (primary ) hypertension (5) Diabetes Current Visit: Yes Status: Chronic Assessment and plan: controlled. monitor FSBS closely. had hypogylcemic episode yesterday. Qualifiers: Diabetes mellitus type: type 2 Diabetes mellitus jira developer insulin use: unspecified jira developer insulin use status Diabetes mellitus complication status : with unspecified complications Qualified Code(s): E11.8 - Type 2 diabetes mellitus with unspecified complications (6) DVT (deep venous thrombosis) Current Visit: Yes Status: Acute Assessment and plan: DVT to RLE and LUE. no anticoagulation therapy due to GI bleed. has IVC filter Qualifiers: DVT location: upper extremity Affected thrombotic vein of extremity: unspecified vein of extremity Chronicity: acute Laterality: unspecified laterality Qualified Code(s): I82.629 - Acute embolism and thrombosis of deep veins of unspecified upper extremity (7) Ascites Current Visit: Yes Status: Acute Assessment and plan: will check chest x-ray. will discuss paracentesis. Qualifiers: Ascites type: other type Qualified Code(s): R18.8 - Other ascites (8) Malodorous urine Current Visit: Yes Status: Acute Assessment and plan: u/a ordered. will follow for results. - Time Spent With Patient 25 - 35 minutes - Subjective Interval history: [facility] participating with therapy. denies any pain. c/o increased urinary frequency and malodorous urine. denies chest pain, fever, chills or diarrhea. small smear of blood in stool. hgb stable. was given extra diuretic yesterday. increased abdominal distention, would benefit from a paracentesis. discussed with pt and about ordering a chest x-ray and urinalysis. - Constitutional Vitals: Temp Pulse Resp BP Pulse Ox 98.3 F 90 18 104/66 96 11/05/17 07:15 11/05/17 07:15 11/05/17 07:15 11/05/17 07:15 11/05/17 07:15 General appearance: Present: A&O X 3, pleasant, no acute distress, answers questions appropriately - Head Head exam: Present: atraumatic, normocephalic - Eye Eye exam: Present: PERRL, conjuntiva pink, sclera anicteric Pupils: Present: PERRL - Neck Neck exam general surgery: Present: supple, trachea midline. Absent: lymphadenopathy - Respiratory Respiratory exam: Present: CTAB. Absent: accessory muscle use, rales, rhonchi, wheezes - Cardiovascular Cardiovascular exam: Present: RRR, +S1, +S2. Absent: diastolic murmur, gallop, rubs, systolic murmur - GI/Abdominal GI/Abdominal exam: Present: distended, normal bowel sounds, soft, no peritoneal signs. Absent: tenderness - Extremities Exam Extremities exam: Present: warm, radial pulses palpable and symmetrical. Absent : calf tenderness, cyanotic, pedal edema Additional comments: BLE edema 2 + pitting. - Neurological Exam Neurological exam: Present: CN II-XII intact, oriented X3, no focal deficits. Absent: pronater drift, facial droop, speech deficit - Skin Skin exam: Present: dry, intact Internal Medicine: Result - Labs CBC & Chem 7: 11/05/17 05:00 11/05/17 05:00 Labs: Short CBC 11/05/17 Range/Units 05:00 WBC 6.1 (4.3-11.1) K/mcL Hgb 8.8 L (12.9-16.9) g/dL Hct 29.1 L (37.5-50.1) % Plt Count 140 (140-400) K/mcL Neutrophils # 4.4 (1.6-8.9) K/mcL BMP 11/05/17 05:00 Sodium 138 Potassium 4.8 Chloride 110 H Carbon Dioxide 23 BUN 21 Creatinine 0.90 Glucose 132 H Calcium 8.5 L Consult Discharge Plan - Plan [facility]errals: [facility] [Primary Care Provider] -
[2017-11-05 19:58] LABS: INR 1.3; Prothrombin Time 14.1 Seconds (9.4-12.1)
[2017-11-05 19:59] LABS: Basophils % 0.2 %; Eosinophils # 0.1 K/mcL (0.0-0.6); Eosinophils % 1.8 %; Hematocrit 27.5 % (37.5-50.1); Hemoglobin 8.4 g/dL (12.9-16.9); Immature Granulocytes % 0.5 % (0-4); Lymphocytes # 0.5 K/mcL (0.6-4.6); Lymphocytes % 7.2 %; Mean Corpuscular HGB Conc 30.5 g/dL (31.6-35.5); Mean Corpuscular Hemoglobin 25.5 pg (28.0-33.3); Mean Corpuscular Volume 83.3 fL (83.0-100.0); Monocytes % 14.7 %; Neutrophils # 4.9 K/mcL (1.6-8.9); Platelet Count 133 K/mcL (140-400); Red Cell Distribution Width 18.8 % (11.5-14.5); Segmented Neutrophils % 75.6 %
[2017-11-06 15:15] VITALS: BP 90/64
--- NOTE | 2017-11-07 11:46 | Discharge Summary ---
Date of Encounter: 11/07/17 Time of Encounter: 11:43 - Discharge Diagnosis (1) GAVE (gastric antral vascular ectasia) Priority: Primary Status: Acute Comments: blood in stool currently. will transfer to [facility] for GI eval. (2) CAD (coronary artery disease) Priority: Secondary Status: Chronic Comments: controlled with current meds. Qualifiers: Coronary Disease-Associated Artery/Lesion type: unspecified vessel or lesion type [place] vs. transplanted heart: [place] heart Associated angina: without angina Qualified Code(s): I25.10 - Atherosclerotic heart disease of [place] coronary artery without angina pectoris (3) Physical deconditioning Priority: Secondary Status: Acute Comments: continue PT/OT once medically stable. (4) Hypertension Priority: Secondary Status: Chronic Comments: Controlled with current medication. Monitor blood pressure. Qualifiers: Hypertension type: unspecified Qualified Code(s): I10 - Essential (primary ) hypertension (5) Diabetes Priority: Secondary Status: Chronic Comments: Controlled with current medication. Continue to monitor fingerstick blood sugars. 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 Currently has DVT and left upper and right lower extremity. Qualifiers: DVT location: upper extremity Affected thrombotic vein of extremity: unspecified vein of extremity Chronicity: acute Laterality: unspecified laterality Qualified Code(s): I82.629 - Acute embolism and thrombosis of deep veins of unspecified upper extremity (7) Ascites Priority: Secondary Status: Chronic Comments: Worsening. Would benefit for paracentesis. Qualifiers: Ascites type: other type Qualified Code(s): R18.8 - Other ascites (8) Malodorous urine Priority: Secondary Status: Acute Comments: Urinalysis pending. Hospital course: Mr. Jennings is a 77 year old male transferring to [facility]. Having loose stool with blood and blood clots present. Increasing ascites and abdomen. Has been short of breath today. History of gave disease. Does have DVT in right lower extremity and left upper extremity. Has had to have multiple blood transfusions in the past year. Discharge discussed with: patient, family, nurse - Time Spent with Patient Total time spent providing and/or coordinating discharge services: Less than 30 minutes - Discharge Medications Home Medications: Carvedilol [Coreg] 25 mg PO BID 04/15/17 [History] Cyanocobalamin (Vitamin B-12) [Vitamin B12] 1,000 mcg PO DAILY 04/15/17 [History ] Folic Acid 1 mg PO DAILY 04/15/17 [History] Multivit-Min/FA/Lycopen/Lutein [Centrum Silver Men Tablet] 1 each PO DAILY 04/15 [History] Pantoprazole Sodium [Protonix] 40 mg PO BID 04/15/17 [History] Potassium Chloride [Klor-Con 10] 10 meq PO TID 04/15/17 [History] Venlafaxine [Effexor] 37.5 tab PO DAILY 04/15/17 [History] Vitamin E Acetate [Vitamin E] 400 unit PO DAILY 04/15/17 [History] Torsemide [Demadex] 10 mg PO DAILY 07/18/17 [History] Ondansetron HCl [Zofran] 4 mg PO Q6H PRN #30 tab 08/15/17 [Rx] Atorvastatin [Lipitor] 40 mg PO HS 09/02/17 [History] Cholecalciferol (Vitamin D3) [Vitamin D3] 2,000 unit PO DAILY 09/27/17 [History] Prochlorperazine Maleate [Compazine] 5 mg PO Q6HR PRN 09/27/17 [History] Acetaminophen [Non-Aspirin] 650 mg PO Q4HR 10/29/17 [History] Insulin ASPART [NovoLOG] 0 unit SQ TIDWM 11/06/17 [History] Insulin Glargine [Lantus] 60 unit SQ BID 11/06/17 [History] Allergies/Adverse Reactions: 3 Allergy/AdvReac Type Severity Reaction Status Date / Time Sulfa (Sulfonamide Allergy Rash Verified 11/06/17 09:19 Antibiotics) aspartame AdvReac Migraine Verified 11/06/17 09:19 hydrocodone [From Vicodin] AdvReac Confusion Verified 11/06/17 09:19 tramadol AdvReac Confusion Verified 11/06/17 09:19 Date of admission: 10/30/17 15:57 [facility] Consults: 10/29/17 21:52 Consult to Occupational Therapy [CONS] Routine Comment: Evaluate, develop and implement POC Reason for Consult: Evaluate and treat Does patient have active BEDREST order?: No Is patient medically & hemodynamically stable?: Yes Patient assessed for mobility or mobilized this visit?: Yes Consult to Physical Medicine/Rehab [CONS] Routine Reason for Consult: Evaluate and treat Call Completed: No Consult to Physical Therapy [CONS] Routine Comment: Evaluate, develop and implement POC Reason for Consult: Evaluate and treat Does patient have active BEDREST order?: No Is patient medically & hemodynamically stable?: Yes Patient assessed for mobility or mobilized this visit?: Yes Consult to Recreational Therapy [CONS] Routine Comment: Evaluate, develop and implement POC Consult to Customer Service Receptionist [CONS] Routine Reason for SW Consult: Pt and will need assistance in determining code status. 10/30/17 16:23 Consult to Occupational Therapy [CONS] Routine Comment: Deconditioning Reason for Consult: Deconditioning Does patient have active BEDREST order?: No Is patient medically & hemodynamically stable?: Yes Consult to Physical Therapy [CONS] Routine Comment: Deconditioning Reason for Consult: Deconditioning Does patient have active BEDREST order?: No Is patient medically & hemodynamically stable?: Yes Consult to Recreational Therapy [CONS] Routine Comment: Consult to Customer Service Receptionist [CONS] Routine Reason for SW Consult: Deconditioning 10/30/17 16:28 Consult to Physical Medicine/Rehab [CONS] Routine Reason for Consult: Please evaluate and manage therapies' guidelines and recommend pathway to reconditioning. Call Completed: Yes Discharging clinician: Ron Antonio Anticipated date of discharge: 11/05/17 - Constitutional Vitals: Temp Pulse Resp BP Pulse Ox 97.9 F 104 18 111/73 97 11/05/17 19:02 11/05/17 19:02 11/05/17 19:02 11/05/17 19:02 11/05/17 19:52 General appearance: Present: cooperative, A&O X 3, pleasant, no acute distress, answers questions appropriately - Head Head exam: Present: atraumatic, normocephalic - Eye Eye exam: Present: PERRL, conjuntiva pink, sclera anicteric Pupils: Present: PERRL - Neck Neck exam general surgery: Present: supple, trachea midline. Absent: lymphadenopathy - Respiratory Respiratory exam: Present: CTAB. Absent: accessory muscle use, rales, rhonchi, wheezes - Cardiovascular Cardiovascular exam: Present: RRR, +S1, +S2. Absent: diastolic murmur, gallop, rubs, systolic murmur - GI/Abdominal GI/Abdominal exam: Present: normal bowel sounds, soft, no peritoneal signs. Absent: distended, tenderness Additional comments: Abdominal distention - Extremities Exam Extremities exam: Present: warm, radial pulses palpable and symmetrical. Absent : calf tenderness, cyanotic, pedal edema Additional comments: Non-pitting edema bilateral lower extremities - Neurological Exam Neurological exam: Present: CN II-XII intact, oriented X3, no focal deficits. Absent: pronater drift, facial droop, speech deficit - Skin Skin exam: Present: dry, intact - Patient Status Disposition: Transfer Critical Access Hosp Condition: Fair Overall status at discharge: patient is not back to baseline - Discharge Instructions [facility] With: [facility] [Primary Care Provider] - - Diet and Activity Activity: as per physical therapy Diet: diabetic diet
== END 2017-11-05 21:10 | disposition critical access hospital (66) | DRG 945 ==
LOC: INPGRE 15:57